=== PATIENT | male | born 1995 | race Caucasian/White ===

== ENCOUNTER 2018-08-29 22:17 | Emergency (ER) | payer SELFPAY ==
[~2018-08-29] VITALS: Ht 172.7 cm; Wt 129.0 kg
[2018-08-29 22:20] VITALS: Ht 172.7 cm; Wt 129.0 kg
[2018-08-29] MEDS ORDERED: KETOROLAC 15 MG INJ IM STA (23:11)
--- NOTE | 2018-08-30 01:21 | ERD ---
ER Documentation Chief Complaint Chief Complaint R testicular pain since yesterday denies injury HPI This is a 23-year-old male with no significant past medical history who is presenting with approximately 1 day of waxing and waning right scrotal pain. The patient is not sexually active. He denies masturbating recently. He denies any dysuria or hematuria or urgency or frequency. He denies any trauma or injury. He describes the pain as a mild aching sensation. He has not noticed any swelling or redness. He does not endorse any alleviating or exacerbating factors. The patient denies feeling sick recently. The patient denies fever or chills. The patient has had no headache or vision changes. The patient does not endorse neck or back pain. The patient denies lightheadedness or dizziness. The patient has had no chest pain or trouble breathing. The patient denies nausea or vomiting. The patient denies abdominal pain. The patient denies changes to bowel movements or urination. The patient has had no focal deficits. The patient has had no weakness or numbness or tingling to the face or extremities. ROS All systems reviewed and are negative except as per history of present illness. Allergies Allergies: Coded Allergies: No Known Allergy (Unverified , 08/29/18) PMhx/Soc Medical and Surgical Hx: pt denies Medical Hx, pt denies Surgical Hx History of Surgery: No Hx Neurological Disorder: No Hx Respiratory Disorders: No Hx Cardiac Disorders: No Hx Psychiatric Problems: No Hx Miscellaneous Medical Probl: No Hx Alcohol Use: No Hx Substance Use: No Hx Tobacco Use: No Smoking Status: Never smoker FmHx Family History: No diabetes Physical Exam Vitals Vital Signs Date Temp Pulse Resp B/P (MAP) Pulse Ox O2 O2 Flow FiO2 Time Delivery Rate 08/29/18 99.0 93 20 155/73 100 22:20 (100) Physical Exam Const: No acute distress Head: Atraumatic Eyes: Normal Conjunctiva ENT: Normal External Ears, Nose and Mouth. Neck: Full range of motion. No meningismus. Resp: Clear to auscultation bilaterally Cardio: Regular rate and rhythm, no murmurs Abd: Soft, non tender, non distended. Normal bowel sounds : Child Attendant present at all times. Mild scrotal tenderness on the right. No testicular or epididymal edema. No scrotal erythema. Skin: No petechiae or rashes Back: No midline or flank tenderness Ext: No cyanosis, or edema Neur: Awake and alert Psych: Normal Mood and Affect Results 24 hrs Laboratory Tests Test 08/29/18 23:22 Urine Color YELLOW Urine Clarity CLEAR Urine pH 5.0 Urine Specific [place] 1.020 Urine Ketones NEGATIVE mg/dL Urine Nitrite NEGATIVE mg/dL Urine Bilirubin NEGATIVE mg/dL Urine Urobilinogen 1+ mg/dL Urine Leukocyte Esterase NEGATIVE Yohana/ul Urine Microscopic RBC 0 /HPF Urine Microscopic WBC 0 /HPF Urine Hemoglobin 1+ mg/dL Urine Glucose NEGATIVE mg/dL Urine Total Protein NEGATIVE mg/dl Current Medications Medications Dose Sig/Caio Start Time Status Last (Trade) Ordered Route PRN Stop Time Admin Dose Reason Admin Ketorolac 15 mg ONCE STAT 08/29/18 DC 08/29/18 Tromethamine IM 23:11 23:19 (Toradol) 08/29/18 23:13 Procedures/MDM MDM The patient's presentation warrants further investigation. Previous medical records, if available, were reviewed. LABS The patient's laboratory testing was obtained and reviewed. No emergent treatment was required unless described below. Urine: No E/o acute infection or hematuria IMAGING Imaging and Radiology interpretation reviewed. Ultrasound scrotum FINDINGS: The right testicle is well visualized and has a normal echotexture. The right testicle measures 4.0 x 2.4 x 2.1 cm. There is normal blood flow on color-flow imaging. Doppler arterial waveforms are normal. The right epididymis is visualized and unremarkable in appearance. There is no evidence of hyperemia on color flow imaging. The left testicle is well visualized and has a normal echotexture.The left testicle measures 3.6 x 2.9 x 2.1 cm. There is normal testicular blood flow on color flow imaging. Doppler arterial waveforms are normal. The left epididymis is visualized and is unremarkable in appearance. Blood flow is normal on color-flow imaging. The scrotal wall is unremarkable, without swelling or edema. No other incidental abnormality is identified. There are small insignificant bilateral hydroceles. IMPRESSION: Unremarkable testicular ultrasound. In particular, there is no evidence of torsion, epididymitis, orchitis, or testicular neoplasm. Electronically viewed and signed by Physician Kaley on 08/30/2018 01:12 TREATMENT/DISPOSITION The patient presents for mild right scrotal pain. The patient's work-up is reassuring. The patient is not sexually active. I have low suspicion for sexually transmitted infection. The patient's urinalysis is unremarkable. I do not suspect a urinary tract infection. The patient's ultrasound is likewise unremarkable. There is no evidence of torsion, epididymitis, orchitis or testicular neoplasm. The patient was treated with Toradol in the emergency department. DISCHARGE Upon reevaluation of the patient, symptoms have improved. No emergent diagnoses were identified. At this time, I feel that the patient stable for discharge. The patient was instructed to follow-up with a primary care physician in 1-3 days. The patient will be given strict precautions with which to return to the emergency department. Prescriptions: Ibuprofen The patient's blood pressure was elevated at greater than 120/80 while in the emergency department. The patient was otherwise stable with no evidence of hypertensive urgency or emergency. The patient does not require admission for blood pressure control. I have discussed with the patient the risks of hypertension. I have instructed the patient to return to the ER for any new or worsening symptoms including chest pain, shortness of breath, headache, blurred vision, confusion, nausea, vomiting or LOC. I have advised the patient to follow up with the primary care physician for outpatient monitoring and treatment for hypertension in 1-3 days. Disclaimer: Inadvertent spelling and grammatical errors are likely due to EHR/dictation software use and do not reflect on the overall quality of patient care. Note that the electronic time recorded on this note does not necessarily reflect the actual time of the patient encounter. Departure Diagnosis: Primary Impression: Right testicular pain Condition: Stable Patient Instructions: Contusion, Testicles Or Scrotum Additional Instructions: Thank you for for coming to [facility] for your care today. Please ask your nurse or provider if you have questions about your care today and do not leave until all your questions have been answered. Please use any medications given as directed and follow-up with your doctor (or the doctor you were referred to) in the next 1-3 days. If you do not have a primary care doctor you may follow up at the [facility] or [facility] (listed below). You may also use motrin and tylenol as needed for fever and/or pain unless instructed otherwise by your provider or nurse. Indications for more urgent follow-up have been discussed, but you may return to the Emergency Department at ANY time for any worrisome or worsening symptoms. If you have abdominal pain, please know that no test or exam you received is perfect and you should follow up within 8 hours for continued pain. If you had any imaging studies today, such as an X-Ray or CT Scan, these studies will be reviewed later by a radiologist. You will be called if there are important findings that were not identified today, so make sure the contact information you provided at registration is correct. If you received any narcotic pain control medicine today, such as Vicodin, Morphine or Dilaudid, your coordination and judgment may be affected for a number of hours. Please do not drive or operate heavy machinery, and you may want someone to assist you at home. If you were given a prescription for narcotic medication, be aware that it is very addictive- use sparingly and only if necessary. PLEASE SEEK FURTHER EVALUATION AND MANAGEMENT AT YOUR DOCTORS OFFICE WITHIN THE NEXT 1-3 DAYS. IT IS YOUR RESPONSIBILITY TO MAKE AN APPOINTMENT FOR FOLOW-UP CARE. IF YOU HAVE A PRIMARY DOCTOR, PLEASE CALL THEIR OFFICE TO SCHEDULE AN APPOINTMENT FOR FOLLOW UP. IF YOU DO NOT HAVE A PRIMARY DOCTOR YOU CAN CALL OUR PHYSICIAN REFERRAL HOTLINE AT IF YOU CAN NOT AFFORD TO SEE A PHYSICIAN YOU CAN CHOSE FROM THE FOLLOWING [facility] CLINICS: [facility] [address] [facility]. [facility] [address] [facility] [facility] [address] [facility] [facility] [address] [facility]. [facility] [address] [facility]. [facility]. [address] GORGE MARIE MD August 30, 2018 01:21
[2018-08-30] MEDS ORDERED: IBUP-1542 PO (01:22)
[2018-08-30 01:34] VITALS: BP 141/69; PULSE 8; RESP 16
== END 2018-08-30 01:34 | disposition home or self-care (01) ==
LOC: FTE 22:17
DX: N50.811 Right testicular pain (principal)
CPT/HCPCS: 76870; 81001; 96372; 99285; J1885